=== PATIENT | female | born 1975 | race Hispanic/Latino ===

== ENCOUNTER 2018-07-22 17:21 | Emergency (ER) | payer BC, MEDICARE, OTHER ==
[~2018-07-22] VITALS: Ht 170.2 cm; Wt 95.7 kg
--- OUTSIDE RECORDS SUMMARY | 2018-07-22 17:24 | XMS REPORT ---
Author Author Meagan Sampson Organization [employer] Address Unknown Phone Unavailable Care Team Providers Care Weighbridge Operator Name Role Phone Meagan Sampson CP Unavailable Allergies, Adverse Reactions, Alerts Substance Reaction Event Type N.K.D.A. Info Not Available Non Drug Allergy Problems Problem Type Condition Code Onset Dates Condition Status Assessment Pain in right hand M79.641 Active Assessment Pain, joint, multiple sites M25.50 Active Assessment Pain of left hand M79.642 Active Assessment Counseling NOS Z71.9 Active Medications Medication Code System Code Instructions Start Date End Date Status Dosage Labetolol NDC 0 Oral Active 150 mg 1 tab Meloxicam NDC 86170651634 15 MG Orally Once a day Mar 06, 2018 Active 1 tab(s) with food as needed Vital Signs Date/Time: Mar 06, 2018 Height 67 in Blood Pressure Diastolic 86 mm Hg Blood Pressure Systolic 150 mm Hg Weight 220.8 lbs Results No Known Results Summary Purpose [employer] Submission
--- OUTSIDE RECORDS SUMMARY | 2018-07-22 17:24 | XMS REPORT ---
Author Author Meagan Sampson Organization [employer] Address Unknown Phone Unavailable Care Team Providers Care Senior Examiner Name Role Phone Meagan Sampson CP Unavailable Allergies No Known Allergies Problems Problem Type Condition Code Onset Dates Condition Status Problem Other iron deficiency anemia D50.8 Active Problem Chronic leukopenia D72.819 Active Problem Other organ or system involvement in systemic lupus erythematosus M32.19 Active Medications No Known Medications Results No Known Results Summary Purpose [employer] Submission
--- OUTSIDE RECORDS SUMMARY | 2018-07-22 17:24 | XMS REPORT ---
Author Author Meagan Sampson Organization [employer] Address Unknown Phone Unavailable Care Team Providers Care Straddle Bug Name Role Phone Meagan Sampson CP Unavailable Allergies, Adverse Reactions, Alerts Substance Reaction Event Type N.K.D.A. Info Not Available Non Drug Allergy Problems Problem Type Condition Code Onset Dates Condition Status Assessment Chronic leukopenia D72.819 Active Assessment Counseling NOS Z71.9 Active Assessment Other iron deficiency anemia D50.8 Active Problem Other iron deficiency anemia D50.8 Active Problem Chronic leukopenia D72.819 Active Problem Other organ or system involvement in systemic lupus erythematosus M32.19 Active Assessment Pain in right hand M79.641 Active Assessment Pain, joint, multiple sites M25.50 Active Assessment Other organ or system involvement in systemic lupus erythematosus M32.19 Active Assessment Pain of left hand M79.642 Active Medications Medication Code System Code Instructions Start Date End Date Status Dosage Hydroxychloroquine Sulfate NDC 93392605116 200 MG Orally Once a day Mar 14, 2018 Active 2 tabs PredniSONE NDC 36266877067 10 mg Orally Once a day Mar 14, 2018 Active 1 tab(s) with food Labetolol NDC 0 Oral Active 150 mg 1 tab Meloxicam NDC 57085464392 15 MG Orally Once a day Active 1 tab(s) with food as needed Vital Signs Date/Time: Mar 14, 2018 Height 67 in Blood Pressure Diastolic 74 mm Hg Blood Pressure Systolic 129 mm Hg Weight 221.2 lbs Results No Known Results Summary Purpose [employer] Submission
--- OUTSIDE RECORDS SUMMARY | 2018-07-22 17:24 | XMS REPORT ---
Author Author [facility] Address Unknown Phone Unavailable Care Team Providers Care Editor Magazine Name Role Phone Unavailable Unavailable Payers Payer Name Policy Type Policy Number Effective Date Expiration Date Problems This patient has no known problems. Allergies, Adverse Reactions, Alerts This patient has no known allergies or adverse reactions. Medications This patient has no known medications.
--- OUTSIDE RECORDS SUMMARY | 2018-07-22 17:24 | XMS REPORT | Continuity of Care Document ---
Author Author [facility] Interface Address Unknown Phone Unavailable Problems Problem Status Onset Date Classification Date Reported Comments Source Other iron deficiency anemia Active Diagnosis 05/17/2018 Meagan Najam Chronic leukopenia Active Diagnosis 05/17/2018 Meagan Najam Other organ or system involvement in systemic lupus erythematosus Active Problem 05/17/2018 Meagan Najam Localized swelling, mass and lump, upper limb Active Diagnosis 03/22/2018 Meagan Najam Swelling of limb Active Diagnosis 03/22/2018 Meagan Najam Stiffness of right wrist joint Active Diagnosis 03/22/2018 Meagan Najam Pain in joint of left hand Active Diagnosis 03/22/2018 Meagan Najam Pain in right wrist Active Diagnosis 03/22/2018 Meagan Najam Effusion of hand joint, left Active Diagnosis 03/22/2018 Meagan Najam Pain in right hand Active Diagnosis 05/17/2018 Meagan Najam Pain, joint, multiple sites Active Diagnosis 05/17/2018 Meagan Najam Pain of left hand Active Diagnosis 05/17/2018 Meagan Najam Counseling NOS Active Diagnosis 05/17/2018 Meagan Najam Medications Medication Details Route Status Patient Instructions Ordering Provider Order Date Source Hydroxychloroquine Sulfate 2 tabs Orally Active 200 MG Orally Once a day Najam 09/13/2018 Meagan Najam PredniSONE 1 tab(s) with food Orally Active 10 mg Orally Once a day Najam 08/14/2018 Meagan Najam Hydroxychloroquine Sulfate 2 tabs Orally Active 200 MG Orally Once a day Najam 03/14/2018 Meagan Najam PredniSONE 1 tab(s) with food Orally Active 10 mg Orally Once a day Najam 03/14/2018 Meagan Najam Meloxicam 1 tab(s) with food as needed Orally Active 15 MG Orally Once a day Naja 03/06/2018 Meagan Najam Labetolol 150 mg 1 tab Oral Active Oral Najam Meagan Najam Meloxicam 1 tab(s) with food as needed Orally Active 15 MG Orally Once a day Najam Meagan Najam Allergies, Adverse Reactions, Alerts Substance Category Reaction Severity Reaction type Status Date Reported Comments Source N.K.D.A. Adverse Reaction Info Not Available Adverse Reaction Active 05/16/2018 Meagan Najam Immunizations Immunization Date Given Site Status Last Updated Comments Source Results Order Name Results Value Reference Range Date Interpretation Comments Source Vital Signs Vital Sign Value Date Comments Source Height 67 05/16/2018 Meagan Najam Diastolic (mm Hg) 86 05/16/2018 Meagan Najam Systolic (mm Hg) 129 05/16/2018 Meagan Najam Weight 213.8 05/16/2018 Meagan Najam Height 67 03/17/2018 Meagan Najam Diastolic (mm Hg) 74 03/17/2018 Meagan Najam Systolic (mm Hg) 129 03/17/2018 Meagan Najam Weight 221.2 03/17/2018 Meagan Najam Height 67 03/14/2018 Meagan Najam Diastolic (mm Hg) 74 03/14/2018 Meagan Najam Systolic (mm Hg) 129 03/14/2018 Meagan Najam Weight 221.2 03/14/2018 Meagan Najam Height 67 03/06/2018 Meagan Najam Diastolic (mm Hg) 86 03/06/2018 Meagan Najam Systolic (mm Hg) 150 03/06/2018 Meagan Najam Weight 220.8 03/06/2018 Meagan Najam Encounters Location Location Details Encounter Type Encounter Number Reason For Visit Attending Provider ADM Date DC Date Status Source Procedures Procedure Code Date Perfomer Comments Source
--- OUTSIDE RECORDS SUMMARY | 2018-07-22 17:24 | XMS REPORT ---
Author Author Meagan Sampson Organization [employer] Address Unknown Phone Unavailable Care Team Providers Care Wind Farm Engineer Name Role Phone Meagan Sampson CP Unavailable Allergies, Adverse Reactions, Alerts Substance Reaction Event Type N.K.D.A. Info Not Available Non Drug Allergy Problems Problem Type Condition Code Onset Dates Condition Status Assessment Other iron deficiency anemia D50.8 Active Assessment Pain, joint, multiple sites M25.50 Active Assessment Counseling NOS Z71.9 Active Assessment Chronic leukopenia D72.819 Active Problem Other iron deficiency anemia D50.8 Active Problem Chronic leukopenia D72.819 Active Problem Other organ or system involvement in systemic lupus erythematosus M32.19 Active Assessment Pain of left hand M79.642 Active Assessment Pain in right hand M79.641 Active Assessment Other organ or system involvement in systemic lupus erythematosus M32.19 Active Medications Medication Code System Code Instructions Start Date End Date Status Dosage Meloxicam NDC 41682189164 15 MG Orally Once a day Active 1 tab(s) with food as needed PredniSONE NDC 87510824085 10 mg Orally Once a day Aug 14, 2018 Active 1 tab(s) with food Labetolol NDC 0 Oral Active 150 mg 1 tab Hydroxychloroquine Sulfate NDC 04248231197 200 MG Orally Once a day Sep 13, 2018 Active 2 tabs Vital Signs Date/Time: May 16, 2018 Height 67 in Blood Pressure Diastolic 86 mm Hg Blood Pressure Systolic 129 mm Hg Weight 213.8 lbs Results No Known Results Summary Purpose [employer] Submission
--- OUTSIDE RECORDS SUMMARY | 2018-07-22 17:24 | XMS REPORT ---
Author Author Meagan Sampson Organization [employer] Address Unknown Phone Unavailable Care Team Providers Care Clinical Informatics Strategist Name Role Phone Meagan Sampson CP Unavailable Allergies No Known Allergies Problems Problem Type Condition Code Onset Dates Condition Status Assessment Localized swelling, mass and lump, upper limb R22.30 Active Assessment Swelling of limb M79.89 Active Problem Other iron deficiency anemia D50.8 Active Problem Chronic leukopenia D72.819 Active Problem Other organ or system involvement in systemic lupus erythematosus M32.19 Active Assessment Stiffness of right wrist joint M25.631 Active Assessment Pain in joint of left hand M79.642 Active Assessment Pain in right wrist M25.531 Active Assessment Effusion of hand joint, left M25.442 Active Medications No Known Medications Vital Signs Date/Time: Mar 17, 2018 Height 67 in Blood Pressure Diastolic 74 mm Hg Blood Pressure Systolic 129 mm Hg Weight 221.2 lbs Results No Known Results Summary Purpose [employer] Submission
--- OUTSIDE RECORDS SUMMARY | 2018-07-22 17:24 | XMS REPORT ---
Author Author Meagan Sampson Organization [employer] Address Unknown Phone Unavailable Care Team Providers Care Acls Specialist Name Role Phone Meagan Sampson CP Unavailable Allergies No Known Allergies Problems No Known Problems Medications No Known Medications Results No Known Results Summary Purpose [employer] Submission
[2018-07-22 17:29] VITALS: BP 5/7
[2018-07-22] MEDS ORDERED: SODIUM CHLORIDE 0.9% 1000ML 1,000 ML IV ONE (17:45)
--- NOTE | 2018-07-22 19:00 | Diagnostic Imaging Report ---
CT Abdomen and Pelvis without contrast INDICATION: Sharp abdominal pain, hematuria TECHNIQUE: Thin collimation axial images obtained from the diaphragm to the level of the pubic symphysis without nonionic intravenous contrast. Dose reduction techniques used: Automated exposure control, adjustment of the mAs and/or kVp according to patient size, standardized low-dose protocol, and/or iterative reconstruction technique. RADIATION DOSE: Total DLP: 777.97 mGy*cm Estimated effective dose: (DLP x 0.015 x size factor) mSv CTDIvol has been reviewed. It is below the limits set by the Radiation Protocol Committee (RPC). COMPARISON: None. ABDOMEN FINDINGS: Lung Bases: Clear. Small hiatal hernia Liver: Normal in attenuation without mass. Gallbladder: Present and appears normal. No ductal dilatation. Pancreas: Normal attenuation without mass. Spleen: Normal size without mass. Adrenal Glands: No evidence for mass. Kidneys: Horseshoe morphology. Right moiety is edematous with collecting system distention. There is a 3 mm calculus present. There are multiple calculi in the left moiety measuring up to 6 mm. No collecting system distention or surrounding edema. Lymph Nodes: No enlarged abdominal retroperitoneal lymph nodes.. Aorta: Normal in diameter. PELVIS FINDINGS: Bowel: Stomach: Normal. Small Bowel: Normal in caliber with normal wall thickness. Large Bowel: Normal in caliber with normal wall thickness. Appendix: Normal. Bladder: Contains a calculus in the right ureteral orifice measuring 5 mm. Ureters: Right ureter is mildly distended throughout its course. Left ureter is collapsed.. The uterus is present and normal in morphology. No adnexal mass. No free fluid or fluid collection.. Bones: Unremarkable for age. IMPRESSION: 1. 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 2. Bilateral intrarenal calculi. 3. No evidence for bowel obstruction or inflammation. Small hiatal hernia. Signed by: Dr. Luis Carlos Hwang MD on 07/22/2018 6:56 PM
--- NOTE | 2018-07-22 19:20 | NUR ---
STRAINER AND CUP GIVEN.
== END 2018-07-22 17:35 | disposition home or self-care (01) ==
LOC: FSED 17:21
DX: R10.30 Lower abdominal pain, unspecified (principal); R31.9 Hematuria, unspecified; N20.0 Calculus of kidney; K59.00 Constipation, unspecified; I10 Essential (primary) hypertension
CPT/HCPCS: 74176; 80048; 80076; 81003; 81025; 85025; 99284; J7030